=== PATIENT | female | born 1985 | race Native Hawaiian/Other Pacific Islander ===

== ENCOUNTER 2017-11-16 16:14 | Emergency (ER) | payer BC, OTHER ==
[2017-11-16 16:27] VITALS: BP 119/78; PULSE 66; RESP 18; TEMP 98.9; O2SAT 99
[2017-11-16] MEDS ORDERED: ceFAZolin 1 GM in Sodium Chloride 0.9% 100 ML IVPB STA (17:34)
--- NOTE | 2017-11-16 17:35 | ED PDOC ---
Upper Extremity Pain/Injury <ReginaldoOliver F - Last Filed: 11/16/17 19:17> Chief Complaint (Provider): right 4th digit trauma History Per: Patient History/Exam Limitations: no limitations Onset/Duration Of Symptoms: Hrs (12 h) Current Symptoms Are (Timing): Still Present Pain Scale Rating Of: 4 Additional Complaint(s): 32 yo ,f, no significant PMHx presents to Ed for evaluation 4th digit fracture. Patient reports she slammed right 4th digit with car door at 5 am today, was seen at urgent care and diagnosed with fracture and sent to ED for further evaluation( IV abx and Hand surgey consult). Patient was placed a finger splint and c/o mild pain but states she has good tolerance for pain and refuse pain medication now. Las tetanus shot given 6 years ago 2011. She denies chest pain, SOB, fever, n,v,d,abd pain. Patient brings with her XR right finger imaging on a CD. <Jean Castrejon - Last Filed: 11/16/17 19:26> Chief Complaint (Nursing): Upper Extremity Problem/Injury Past Medical History Vital Signs: Last Vital Signs Temp 98.9 F 11/16/17 16:23 Pulse 66 11/16/17 16:23 Resp 18 11/16/17 16:23 BP 119/78 11/16/17 16:23 Pulse Ox 99 11/16/17 19:07 <ReginaldoOliver F - Last Filed: 11/16/17 19:17> Reviewed: Nursing Documentation, Vital Signs Vital Signs: Last Vital Signs Temp 98.9 F 11/16/17 16:23 Pulse 66 11/16/17 16:23 Resp 18 11/16/17 16:23 BP 119/78 11/16/17 16:23 Pulse Ox 99 11/16/17 16:23 - Medical History PMH: No Chronic Diseases - Surgical History Surgical History: No Surg Hx - Family History Family History: States: No Known Family Hx - Social History Alcohol: None Drugs: Denies - Immunization History Hx Tetanus Toxoid Vaccination: No Hx Influenza Vaccination: No Hx Pneumococcal Vaccination: No <Jean Castrejon - Last Filed: 11/16/17 19:26> - Allergies Allergies/Adverse Reactions: Allergies Allergy/AdvReac Type Severity Reaction Status Date / Time No Known Allergies Allergy Verified 11/16/17 16:23 Review of Systems ROS Statement: Except As Marked, All Systems Reviewed And Found Negative Musculoskeletal: Positive for: Other (right 4ht finger trauma and pain ) <Jean Castrejon - Last Filed: 11/16/17 19:26> Physical Exam - Physical Exam Appears: Positive for: Well, No Acute Distress Head Exam: Positive for: ATRAUMATIC, NORMOCEPHALIC Skin: Positive for: Normal Color Eye Exam: Positive for: Normal appearance ENT: Positive for: Normal ENT Inspection Neck: Positive for: Normal Cardiovascular/Chest: Positive for: Regular Rate, Rhythm. Negative for: Murmur Respiratory: Positive for: Normal Breath Sounds. Negative for: Crackles, Rales , Rhonchi, Wheezing Gastrointestinal/Abdominal: Positive for: Soft. Negative for: Tenderness, Distended, Guarding Back: Positive for: Normal Inspection Extremity: Positive for: Other (right ring 4th digit distal phalange hematoma over nail and small superficial laceration. Limited ROM from pain) Neurologic/Psych: Positive for: Alert, Oriented. Negative for: Motor/Sensory Deficits <Jean Castrejon - Last Filed: 11/16/17 19:26> - ECG O2 Sat by Pulse Oximetry: 99 <Jean Castrejon - Last Filed: 11/16/17 19:26> Medical Decision Making Medical Decision Makin:00 Impresion Open 4th digit fracture distal phalange XR 4th digit: nondisplaced oblique distal phalange fracture Plan Wound care. saline saline irrigation. Iodine Finger splint IV Ancef 1 g Toradol 15 mg IV Follow up outpatient Hand Surgery Dr Arie Walter in 2-3 days Bactrim PO x 7 days <Jean Castrejon - Last Filed: 11/16/17 19:26> Disposition <Oliver Hair - Last Filed: 11/16/17 19:17> - Disposition Disposition Time: 19:26 <Jean Castrejon - Last Filed: 11/16/17 19:26> - Clinical Impression Clinical Impression: Open fracture of distal phalanx of right hand - Disposition Condition: [facility]IR Forms: [facility] ([place])
== END 2017-11-16 20:04 | disposition home or self-care (01) ==
LOC: H.ER 16:14
DX: S62.634D Displaced fracture of distal phalanx of right ring finger, subsequent encounter for fracture with routine healing (principal); W23.1XXD Caught, crushed, jammed, or pinched between stationary objects, subsequent encounter
CPT/HCPCS: 29130; 96374; 99282; J0690; J1885